=== PATIENT | male | born 1960 | race Caucasian/White ===

== ENCOUNTER 2017-11-18 13:45 | Emergency (ER) | payer BC ==
--- NOTE | 2017-11-18 14:25 | Emergency Department Record ---
History of Present Illness - General Chief Complaint: General Stated Complaint: SEEING SPOTS,THROAT FEELS TIGHT,DISORIENTED,SWEATS Time Seen by Provider: 11/18/17 14:00 Source: Patient Mode of Arrival: Ambulatory Limitations: No limitations - History of Present Illness Initial Comments: pt was at work when he felt funny with his throat tightening and saw white and yellow spots and flashes. he became diaphoretic. he had a brief instant of chest tightness. he states he stopped taking his meds in october -: Minutes(s) History of same: No Place: Work Severity: Mild Quality: Weak Improves With: Time Context: Sudden onset Associated Symptoms: Chest pain - [place] Coma Scale Eye Response: (4) Open spontaneously Motor Response: (6) Obeys commands Verbal Response: (5) Oriented Henrry Total: 15 - Related Data Home Medications: Home Medications Medication Instructions Recorded Confirmed Last Taken Omeprazole [Omeprazole] 40 mg PO DAILY 11/18/17 11/18/17 Unknown Allergies/Adverse Reactions: Allergies Allergy/AdvReac Type Severity Reaction Status Date / Time acetaminophen [From Vicodin] Allergy ITCHING Verified 11/02/15 10:28 hydrocodone bitartrate Allergy ITCHING Verified 11/02/15 10:28 [From Vicodin] Travel Screening - Travel/Exposure Within Last 30 Days Have you traveled within the last 30 days?: No Review of Systems Reviewed: No additional complaints except as noted below Constitutional: Reports: As per HPI. Denies: Chills, Fever, Malaise, Night sweats, Weakness, Weight change Eyes: Reports: As per HPI, Vision change. Denies: Eye discharge, Eye pain, Photophobia ENT: Reports: As per HPI. Denies: Congestion, Dental pain, Ear pain, Epistaxis , Hearing loss, Throat pain Respiratory: Reports: As per HPI. Denies: Cough, Dyspnea, Hemoptysis, Stridor, Wheezes Cardiovascular: Reports: As per HPI. Denies: Arrhythmia, Chest pain, Dyspnea on exertion, Edema, Murmurs, Orthopnea, Palpitations, Paroxysmal nocturnal dyspnea, Rheumatic Fever, Syncope Endocrine: Reports: As per HPI. Denies: Fatigue, Heat or cold intolerance, Polydipsia, Polyuria Gastrointestinal: Reports: As per HPI. Denies: Abdominal pain, Constipation, Diarrhea, Hematemesis, Hematochezia, Melena, Nausea, Vomiting Genitourinary: Reports: As per HPI. Denies: Dysuria, Frequency, Hematuria, Incontinence, Retention, Testicular pain, Testicular mass, Urgency Musculoskeletal: Reports: As per HPI. Denies: Arthralgia, Back pain, Gout, Joint swelling, Myalgia, Neck pain Skin: Reports: As per HPI. Denies: Bruising, Change in color, Change in hair/ nails, Lesions, Pruritus, Rash Neurological: Reports: As per HPI. Denies: Abnormal gait, Confusion, Headache, Numbness, Paresthesias, Seizure, Tingling, Tremors, Vertigo, Weakness Psychiatric: Reports: As per HPI. Denies: Anxiety, Auditory hallucinations, Depression, Homicidal thoughts, Suicidal thoughts, Visual hallucinations Hematological/Lymphatic: Reports: As per HPI. Denies: Anemia, Blood Clots, Easy bleeding, Easy bruising, Swollen glands Past Medical History - SOCIAL HISTORY Smoking Status: Never smoker Alcohol Use: Occasional, Heavy Alcohol Use Comment: 3-4 beers a day Drug Use: None - RESPIRATORY Hx Respiratory Disorders: No - CARDIOVASCULAR Hx Cardio Disorders: Yes Hx Hypertension: Yes Comment:: hypercholesteremia - NEURO Hx Neuro Disorders: No - GI Hx GI Disorders: Yes Hx Reflux: Yes - Hx Genitourinary Disorders: No - ENDOCRINE Hx Endocrine Disorders: No - MUSCULOSKELETAL Hx Musculoskeletal Disorders: No - PSYCH Hx Psych Problems: Yes Hx Depression: Yes - HEMATOLOGY/ONCOLOGY Hx Hematology/Oncology Disorders: No Family Medical History Any Significant Family History?: Yes Hx Stroke: Father Physical Exam - General General Appearance: Alert, Oriented x3, Cooperative, Mild distress - Head Head exam: Normal inspection - Eye Eye exam: Normal appearance, PERRL, EOMI Pupils: Normal accommodation - ENT ENT exam: Normal exam, Mucous membranes moist, Normal external ear exam, Normal orophraynx Ear exam: Normal external inspection. negative: External canal tenderness Nasal Exam: Normal inspection. negative: Discharge, Sinus tenderness Mouth exam: Normal external inspection, Tongue normal Teeth exam: Normal inspection. negative: Dental caries Throat exam: Normal inspection. negative: Tonsillar erythema, Tonsillar exudate - Neck Neck exam: Normal inspection, Full ROM. negative: Tenderness - Respiratory Respiratory exam: Normal lung sounds bilaterally. negative: Respiratory distress - Cardiovascular Cardiovascular Exam: Regular rate, Normal rhythm, Normal heart sounds - GI/Abdominal GI/Abdominal exam: Soft, Normal bowel sounds. negative: Tenderness - Rectal Rectal exam: Deferred - exam: Deferred - Extremities Extremities exam: Normal inspection, Full ROM, Normal capillary refill. negative: Tenderness - Back Back exam: Reports: Normal inspection, Full ROM. Denies: Muscle spasm, Rash noted, Tenderness - Neurological Neurological exam: Alert, CN II-XII intact, Normal gait, Oriented X3 - Psychiatric Psychiatric exam: Normal affect, Normal mood - Skin Skin exam: Dry, Intact, Normal color, Warm Course Vital Signs 11/18/17 13:52 Temperature 98.4 F Pulse Rate 87 Respiratory 24 Rate Blood Pressure 179/96 Pulse Ox 99 - Reevaluation(s) Reevaluation #1: 11/18/17 17:13 pt feels better. Medical Decision Making - Lab Data Result diagrams: 11/18/17 14:40 11/18/17 14:40 Disposition Disposition: Transfer Disposition: Acute Care Hospital Transfer Transfer [facility] Reason For Transfer: stroke like symptoms Accepting Physician: alia christine and louie Time Discussed w/Accepting Physician: 17:13 Forms: Patient Portal Access Quality - Quality Measures Quality Measures: N/A - Blood Pressure Screening Does Patient Have Any of the Following: Active Dx of HTN Blood Pressure Classification: Hypertensive Reading Systolic Measurement: 179 Diastolic Measurement: 96 Screening for High Blood Pressure: Patient Exclusion, Hx of HTN [G9744]
[2017-11-18 14:50] LABS: EOS % 4.6 % (0-6); GRAN % 61.7 % (47-80); HEMATOCRIT 42.9 % (42.0-52.0); HEMOGLOBIN 15.2 gm/dl (14.0-18.0); LYMPH % 26.1 % (16-45); MEAN CELL VOLUME 93.7 fl (81-97); MEAN CORPUSCULAR HEMOGLOBIN 33.2 pg (27-33); MEAN CORPUSCULAR HGB CONC 35.4 g/dl (32-36); MONO % 6.6 % (0-9); PLATELET COUNT 186 K/uL (130-400); RED BLOOD COUNT 4.58 M/uL (4.40-5.70); RED CELL DISTRIBUTION WIDTH 12.2 % (11.5-14.5); WHITE BLOOD COUNT W/O DIFF 5.2 K/uL (4.2-12.2)
[2017-11-18 15:01] LABS: BLOOD UREA NITROGEN 16 mg/dL (6-20); CREATININE 0.8 mg/dL (0.7-1.2); EST GLOMERULAR FILTRATION RATE > 60 mL/min; TOTAL PROTEIN 7.3 g/dL (6.6-8.7)
[2017-11-18 15:04] LABS: GLUCOSE,RANDOM 210 mg/dL (74-109)
[2017-11-18 15:06] LABS: ALB/GLOB RATIO 1.7 (1.1-1.8); ALBUMIN 4.6 g/dL (4.0-5.0); ALT/SGPT 67 U/L (<41); AST/SGOT 44 U/L (10.0-50.0)
[2017-11-18 15:07] LABS: ALKALINE PHOSPHATASE 56 U/L (40-129)
--- NOTE | 2017-11-19 12:44 | CT SCAN REPORT ---
EXAM: CT OF THE HEAD WITHOUT CONTRAST HISTORY: THROAT TIGHTNESS. VISUAL CHANGES. DIZZINESS. TECHNIQUE: Routine noncontrast CT examination of the head was obtained. Comparison: CT of the head without contrast dated 11/02/15. FINDINGS: The subarachnoid spaces are at the upper limits of normal in size. The ventricles are not enlarged. No new suspicious area of abnormally increased or decreased attenuation is noted throughout the brain substance. No abnormal extraaxial fluid collection is seen. There are primarily chronic appearing inflammatory changes within the maxillary sinuses, bilateral ethmoid air cells, sphenoid sinuses and inferior aspects of the frontal sinuses. The orbits as visualized are unremarkable. IMPRESSION: 1. NO CT EVIDENCE OF AN ACUTE INTRACRANIAL ABNORMALITY WITHOUT SIGNIFICANT CHANGE SINCE 11/02/15. 2. PRIMARILY CHRONIC APPEARING INFLAMMATORY CHANGES THROUGHOUT THE MAJORITY OF THE PARANASAL SINUSES. JOB NUMBER: [id number] MTDD
--- NOTE | 2017-11-20 03:27 | Emergency Department Record ---
History of Present Illness - General Chief Complaint: General Stated Complaint: SEEING SPOTS,THROAT FEELS TIGHT,DISORIENTED,SWEATS Time Seen by Provider: 11/18/17 14:00 Source: Patient Mode of Arrival: Ambulatory Limitations: No limitations - History of Present Illness -: Minutes(s) History of same: No Place: Work Severity: Mild Quality: Weak Improves With: Time Context: Sudden onset Associated Symptoms: Chest pain - [place] Coma Scale Eye Response: (4) Open spontaneously Motor Response: (6) Obeys commands Verbal Response: (5) Oriented Henrry Total: 15 - Related Data Home Medications: Home Medications Medication Instructions Recorded Confirmed Last Taken Omeprazole [Omeprazole] 40 mg PO DAILY 11/18/17 11/18/17 Unknown Allergies/Adverse Reactions: Allergies Allergy/AdvReac Type Severity Reaction Status Date / Time acetaminophen [From Vicodin] Allergy ITCHING Verified 11/02/15 10:28 hydrocodone bitartrate Allergy ITCHING Verified 11/02/15 10:28 [From Vicodin] Travel Screening - Travel/Exposure Within Last 30 Days Have you traveled within the last 30 days?: No Review of Systems Constitutional: Reports: As per HPI. Denies: Chills, Fever, Malaise, Night sweats, Weakness, Weight change Eyes: Reports: As per HPI, Vision change. Denies: Eye discharge, Eye pain, Photophobia ENT: Reports: As per HPI. Denies: Congestion, Dental pain, Ear pain, Epistaxis , Hearing loss, Throat pain Respiratory: Reports: As per HPI. Denies: Cough, Dyspnea, Hemoptysis, Stridor, Wheezes Cardiovascular: Reports: As per HPI. Denies: Arrhythmia, Chest pain, Dyspnea on exertion, Edema, Murmurs, Orthopnea, Palpitations, Paroxysmal nocturnal dyspnea, Rheumatic Fever, Syncope Endocrine: Reports: As per HPI. Denies: Fatigue, Heat or cold intolerance, Polydipsia, Polyuria Gastrointestinal: Reports: As per HPI. Denies: Abdominal pain, Constipation, Diarrhea, Hematemesis, Hematochezia, Melena, Nausea, Vomiting Genitourinary: Reports: As per HPI. Denies: Dysuria, Frequency, Hematuria, Incontinence, Retention, Testicular pain, Testicular mass, Urgency Musculoskeletal: Reports: As per HPI. Denies: Arthralgia, Back pain, Gout, Joint swelling, Myalgia, Neck pain Skin: Reports: As per HPI. Denies: Bruising, Change in color, Change in hair/ nails, Lesions, Pruritus, Rash Neurological: Reports: As per HPI. Denies: Abnormal gait, Confusion, Headache, Numbness, Paresthesias, Seizure, Tingling, Tremors, Vertigo, Weakness Psychiatric: Reports: As per HPI. Denies: Anxiety, Auditory hallucinations, Depression, Homicidal thoughts, Suicidal thoughts, Visual hallucinations Hematological/Lymphatic: Reports: As per HPI. Denies: Anemia, Blood Clots, Easy bleeding, Easy bruising, Swollen glands Past Medical History - SOCIAL HISTORY Smoking Status: Never smoker Alcohol Use: Occasional, Heavy Alcohol Use Comment: 3-4 beers a day Drug Use: None - RESPIRATORY Hx Respiratory Disorders: No - CARDIOVASCULAR Hx Cardio Disorders: Yes Hx Hypertension: Yes Comment:: hypercholesteremia - NEURO Hx Neuro Disorders: No - GI Hx GI Disorders: Yes Hx Reflux: Yes - Hx Genitourinary Disorders: No - ENDOCRINE Hx Endocrine Disorders: No - MUSCULOSKELETAL Hx Musculoskeletal Disorders: No - PSYCH Hx Psych Problems: Yes Hx Depression: Yes - HEMATOLOGY/ONCOLOGY Hx Hematology/Oncology Disorders: No Family Medical History Any Significant Family History?: Yes Hx Stroke: Father Physical Exam - General Limitations: No limitations Course Vital Signs 11/18/17 11/18/17 11/18/17 13:52 15:25 17:09 Temperature 98.4 F 98.6 F Pulse Rate 87 Pulse Rate [ 61 68 [employer] 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 ] Respiratory 24 18 20 Rate Blood Pressure 179/96 Blood Pressure 141/85 147/107 [Left Arm] Pulse Ox 99 97 97 11/18/17 17:59 Temperature 99.1 F Pulse Rate 78 Pulse Rate [ H[employer] 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 ] Respiratory 20 Rate Blood Pressure 162/113 Blood Pressure [Left Arm] Pulse Ox 97 Medical Decision Making - Lab Data Result diagrams: 11/18/17 14:40 11/18/17 14:40 Lab Results 11/18/17 11/18/17 11/18/17 Range/Units 14:40 14:40 14:40 WBC 5.2 (4.2-12.2) K/uL RBC 4.58 (4.40-5.70) M/uL Hgb 15.2 (14.0-18.0) gm/dl Hct 42.9 (42.0-52.0) % MCV 93.7 (81-97) fl MCH 33.2 H (27-33) pg MCHC 35.4 (32-36) g/dl RDW 12.2 (11.5-14.5) % Plt Count 186 (130-400) K/uL MPV 11.0 H (7.4-10.4) fl Gran % 61.7 (47-80) % Lymphocytes % 26.1 (16-45) % Monocytes % 6.6 (0-9) % Eosinophils % 4.6 (0-6) % Basophils % 1.0 (0-6) % Sodium 137 (136-145) mmol/L Potassium 4.3 (3.4-4.5) mmol/L Chloride 98 (98-107) mmol/L Carbon Dioxide 24.0 (22-29) mmol/L Anion Gap 15.0 (7-16) BUN 16 (6-20) mg/dL Creatinine 0.8 (0.7-1.2) mg/dL Estimated GFR > 60 mL/min Random Glucose 210 H (74-109) mg/dL Calcium 8.9 (8.6-10.0) mg/dL Total Bilirubin 0.60 (0.2-1.0) mg/dL AST 44 (10.0-50.0) U/L ALT 67 H (<41) U/L Alkaline Phosphatase 56 (40-129) U/L Troponin T < 0.010 (0-0.010) ng/mL Total Protein 7.3 (6.6-8.7) g/dL Albumin 4.6 (4.0-5.0) g/dL Globulin 2.7 (1.4-4.8) gm/dL Albumin/Globulin Ratio 1.7 (1.1-1.8) Disposition Disposition: Transfer Clinical Impression: TIA (transient ischemic attack) Qualifiers: Transient cerebral ischemia type: other Qualified Code(s): G45.8 - Other transient cerebral ischemic attacks and related syndromes Disposition: Acute Care Hospital Transfer Transfer To: [facility] Reason For Transfer: needs neurology Accepting Physician: dr christine Time Discussed w/Accepting Physician: 15:00 Forms: Patient Portal Access Quality - Quality Measures Quality Measures: N/A - Blood Pressure Screening Does Patient Have Any of the Following: Active Dx of HTN Blood Pressure Classification: Hypertensive Reading Systolic Measurement: 162 Diastolic Measurement: 113 Screening for High Blood Pressure: Patient Exclusion, Hx of HTN [R2102]
== END 2017-11-18 18:04 | disposition short-term general hospital (02) ==
LOC: ER 13:45
DX: G45.8 Other transient cerebral ischemic attacks and related syndromes (principal); R07.89 Other chest pain; R53.1 Weakness; R61 Generalized hyperhidrosis; I10 Essential (primary) hypertension
CPT/HCPCS: 70450; 80053; 84484; 85025; 93005; 93010; 99285